=== PATIENT | female | born 1985 | race Caucasian/White ===

== ENCOUNTER 2020-05-08 14:36 | Emergency (ER) | payer SELFPAY ==
--- NOTE | 2020-05-08 14:43 | EDM.PDOC ---
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 She states she had a normal menstrual period in December 2019. Since then, she has had light spotting which is landing on her routine menses although is lasting approximately 1 day (typically has a 4 day menses). In March 2020 she took a test which she says was "faintly positive". Today she started to develop vaginal bleeding and cramping to the left lower quadrant. She is concerned she may be and having a miscarriage. Denies any vaginal discharge or concern for STIs. Patient denies any fever, chills, headache, change in vision, syncope or near syncope. Denies any chest pain, back pain, shortness of breath or cough. Denies any nausea, vomiting, diarrhea, constipation or dysuria. Has not noted any blood in urine or stool. Patient has been eating and drinking appropriately. 4: para 0 Review of systems: As per history of present illness and below otherwise all systems reviewed and negative. Past medical history: As per history of present illness and as reviewed below otherwise noncontributory. Surgical history: As per history of present illness and as reviewed below otherwise noncontributory. Social history: See social history for further information Family history: As per history of present illness and as reviewed below otherwise non contributory. Physical exam: General: Well developed and well nourished. Alert and orientated x 3. Nontoxic in appearance and in no acute distress. Vital signs are stable and have been reviewed by me. Nursing notes were reviewed. HEENT: Atraumatic, normocephalic, pupils equal and reactive bilaterally, negative for conjunctival pallor or scleral icterus, mucous membranes moist, trachea midline. No drooling or trismus noted. No meningeal signs. No hot potato voice noted. Lungs: Clear to auscultation, breath sounds equal bilaterally, chest nontender. Normal work of breathing, no accessory muscles used. Heart: S1S2, regular rate and rhythm without overt murmur Abdomen: Soft, nondistended, nontender. Negative for masses or hepatosplenomegaly. Negative for costovertebral tenderness. Pelvis: Stable nontender. Skin: Intact, warm, dry. No lesions or rashes noted. Hematologic: No petechiae or purpra. Mucosa appropriate color and normal nail bed color and refill. Extremities: Atraumatic, moves all extremities per self without difficulty or deficits, negative for cords or calf pain. Neurovascular unremarkable. Neuro: Awake, alert, oriented. Cranial nerves II through XII unremarkable. Cerebellum unremarkable. Motor and sensory unremarkable throughout. Exam nonfocal. Psychiatric: Mood and affect are appropriate. Normal thought process. Answering questions appropriately. Notes: Patient's test was negative, she declines wanting a pelvic exam done at this time. She has no concerns for STIs. She is agreeable to a pelvic ultrasound for her left lower abdominal pain. Ultrasound shows a small hemorrhagic cyst 1.2 cm on the right ovary. Unremarkable left ovary. No evidence of torsion on either side. No myometrial mass. The endometrium is of normal caliber and appearance I have talked with the patient about today's findings, in addition to providing specific details for plan of care. Reassessment at the time of disposition demonstrates that the patient is in no acute distress. The patient is stable for discharge, counseling was provided and we discussed in great detail signs and symptoms that would prompt them to return to the Emergency Department. Medication, follow up and supportive care measures were reviewed and discussed. Voices understanding and is agreeable to plan of care. Denies any further questions or concerns at this time. Diagnostics: CBC, CMP, UA, HCGU, Pelvic ultrasounds Therapeutics: None Prescription: None Impression: Abdominal pain Ovarian cyst, right Plan: 1. Today your lab work showed no evidence of . You do have a small ovarian cyst on the right, otherwise your ultrasound was within normal limits. 2. You can alternate Tylenol and ibuprofen as needed for pain management. 3. We encourage you to follow up with your primary care provider and/or recommended specialist in the next few days for re-evaluation and further care/management. If your symptoms should worsen, new symptoms develop or any of the signs and symptoms we discussed should arise please return to the emergency room or call 911 (if needed). Definitive disposition and diagnosis as appropriate pending reevaluation and review of above. lower abdomen Pain Score (Numeric/FACES): 5 - Related Data Allergies Allergy/AdvReac Type Severity Reaction Status Date / Time No Known Allergies Allergy Verified 05/08/20 14:45 Home Meds: Home Meds Pnv No.103/Folic/Om3s/Fish Oil [ Gummies] 2 tab PO DAILY 05/08/20 [History] ED ROS GENERAL - Review of Systems Review Of Systems: Comprehensive ROS is negative, except as noted in HPI. ED EXAM - Physical Exam Exam: See Below (See dictation) Course - Vital Signs Last Recorded V/S: Last Vital Signs Temp 97.2 F 05/08/20 14:41 Pulse 96 05/08/20 14:41 Resp 16 05/08/20 14:41 BP 139/73 05/08/20 14:41 Pulse Ox 100 05/08/20 14:41 - Orders/Labs/Meds Orders: Active Orders 24 hr Category Date Time Status CMP [COMPREHENSIVE METABOLIC PN,CMP] [CHEM] Stat Lab 05/08/20 15:18 Received Labs: Laboratory Tests 05/08/20 05/08/20 05/08/20 Range/Units 14:50 14:50 15:18 WBC 8.65 (4.0-11.0) K/uL RBC 4.01 L (4.30-5.90) M/uL Hgb 14.5 (12.0-16.0) g/dL Hct 40.3 (36.0-46.0) % MCV 100.5 H (80.0-98.0) fL MCH 36.2 H (27.0-32.0) pg MCHC 36.0 (31.0-37.0) g/dL RDW Std Deviation 47.1 (28.0-62.0) fl RDW Coeff of [place] 13 (11.0-15.0) % Plt Count 288 (150-400) K/uL MPV 10.00 (7.40-12.00) fL Neut % (Auto) 52.8 (48.0-80.0) % Lymph % (Auto) 37.3 (16.0-40.0) % [place] % (Auto) 5.8 (0.0-15.0) % Eos % (Auto) 3.6 (0.0-7.0) % Baso % (Auto) 0.5 (0.0-1.5) % Neut # (Auto) 4.6 (1.4-5.7) K/uL Lymph # (Auto) 3.2 H (0.6-2.4) K/uL [place] # (Auto) 0.5 (0.0-0.8) K/uL Eos # (Auto) 0.3 (0.0-0.7) K/uL Baso # (Auto) 0.0 (0.0-0.1) K/uL Nucleated RBC % 0.0 /100WBC Nucleated RBCs # 0 K/uL Urine Color YELLOW Urine Appearance CLEAR Urine pH 6.5 (5.0-8.0) Ur Specific [place] 1.020 (1.001-1.035) Urine Protein NEGATIVE (NEGATIVE) mg/dL Urine Glucose (UA) NEGATIVE (NEGATIVE) mg/dL Urine Ketones NEGATIVE (NEGATIVE) mg/dL Urine Occult Blood LARGE H (NEGATIVE) Urine Nitrite NEGATIVE (NEGATIVE) Urine Bilirubin NEGATIVE (NEGATIVE) Urine Urobilinogen 0.2 (<2.0) EU/dL Ur Leukocyte Esterase SMALL H (NEGATIVE) Urine RBC 3-5 (0-2/HPF) Urine WBC 2-3 (0-5/HPF) Ur Epithelial Cells MODERATE (NONE-FEW) Urine Bacteria RARE (NEGATIVE) Urine HCG, Qual NEGATIVE (NEGATIVE) Departure - Departure Time of Disposition: 16:15 Disposition: Home, Self-Care 01 Clinical Impression: Abdominal pain Qualifiers: Abdominal location: left lower quadrant Qualified Code(s): R10.32 - Left lower quadrant pain Ovarian cyst Qualifiers: Laterality: right Qualified Code(s): N83.201 - Unspecified ovarian cyst, right side - Discharge Information Instructions: Abdominal Pain, Adult, [id number] Referrals: PCP,None [Primary Care Provider] - Forms: ED Department Discharge Additional Instructions: The following information is given to patients seen in the emergency department who are being discharged to home. This information is to outline your options for follow-up care. We provide all patients seen in our emergency department with a follow-up referral. The need for follow-up, as well as the timing and circumstances, are variable depending upon the specifics of your emergency department visit. If you don't have a primary care physician on staff, we will provide you with a referral. We always advise you to contact your personal physician following an emergency department visit to inform them of the circumstance of the visit and for follow-up with them and/or the need for any referrals to a consulting specialist. The emergency department will also refer you to a specialist when appropriate. This referral assures that you have the opportunity for follow-up care with a specialist. All of these measure are taken in an effort to provide you with optimal care, which includes your follow-up. Under all circumstances we always encourage you to contact your private physician who remains a resource for coordinating your care. When calling for follow-up care, please make the office aware that this follow-up is from your recent emergency room visit. If for any reason you are refused follow-up, please contact the [facility] Emergency Department at and asked to speak to the emergency department charge nurse. [facility] [address] [place] [id number] [facility] [address] [place] [id number] Thank you for choosing the [facility] emergency department in [place] for your medical needs today. It was a pleasure caring for you. Today you were seen in the emergency department for vaginal bleeding. 1. Today your lab work showed no evidence of . You do have a small ovarian cyst on the right, otherwise your ultrasound was within normal limits. 2. You can alternate Tylenol and ibuprofen as needed for pain management. 3. We encourage you to follow up with your primary care provider and/or recommended specialist in the next few days for re-evaluation and further care/management. If your symptoms should worsen, new symptoms develop or any of the signs and symptoms we discussed should arise please return to the emergency room or call 911 (if needed). Sepsis Event Note (ED) - Focused Exam Vital Signs: Vital Signs Temp Pulse Resp BP Pulse Ox 05/08/20 14:41 97.2 F 96 16 139/73 100 - My Orders Last 24 Hours: My Active Orders 05/08/20 15:18 CMP [COMPREHENSIVE METABOLIC PN,CMP] [CHEM] Stat - Assessment/Plan Last 24 Hours: My Active Orders 05/08/20 15:18 CMP [COMPREHENSIVE METABOLIC PN,CMP] [CHEM] Stat
--- NOTE | 2020-05-08 16:09 | US ---
Indication: Left lower quadrant pain. Bleeding. Technique: The study was performed transvaginally only. Doppler was also performed to assess the ovaries. Comparison: None Findings: Uterus: Uterus is retroflexed. The uterus measures 4.8 by a 3.0 x 3.3 centimeters which is smaller than average. No myometrial mass. The endometrium is of normal caliber and appearance measuring 2 millimeters. Right ovary: Measures 2.1 by 3.1 by 3.8 centimeters. This contains what is likely a small hemorrhagic cyst measuring about 1.2 centimeters. No evidence of torsion Left ovary: Measures 2.5 by 2.3 x 1.6 centimeters containing follicles. No evidence of torsion No free fluid in the cul de sac Impression: Small likely hemorrhagic cyst measuring 1.2 centimeters in the right ovary. Unremarkable left ovary. No evidence of torsion on either side. No myometrial mass. The endometrium is of normal caliber and appearance Dictated by Tomi Guerrero MD @ May 08 2020 4:03PM Signed by Dr. Tomi Guerrero @ May 08 2020 4:07PM
[2020-05-08 16:14] LABS: BLOOD UREA NITROGEN,BUN 19 mg/dL (7.0-18.0); CHLORIDE,CL 102 mmol/L (98-107); GLUCOSE RANDOM 90 mg/dL (74-106); SODIUM,NA 137 mmol/L (136-145)
== END 2020-05-08 16:32 | disposition home or self-care (01) ==
LOC: MW.ED 14:36
DX: N83.201 Unspecified ovarian cyst, right side (principal)
CPT/HCPCS: 36415; 76857; 76857-26; 80053; 81001; 81025; 85025; 99283; 99284-25

== ENCOUNTER 2020-11-08 15:35 | Emergency (ER) | payer MEDICAID, OTHER ==
[2020-11-08] MEDS ORDERED: Sodium Chloride 0.9% 10 ML Syringe FLUSH PRN (15:39)
[2020-11-08] MEDS ORDERED: diphenhydrAMINE 50 MG/ML SDV IVPUSH ONE (15:39)
[2020-11-08] MEDS ORDERED: Sodium Chloride 0.9% 2.5 ML Syringe FLUSH PRN (15:39)
[2020-11-08] MEDS ORDERED: Dexamethasone 10 MG/ML SDV IVPUSH ONE (15:39)
[2020-11-08] MEDS ORDERED: Famotidine 20 MG/2 ML SDV IVPUSH ONE (15:39)
[2020-11-08] MEDS ORDERED: Dexamethasone 10 MG/ML SDV ONE (15:40)
[2020-11-08] MEDS ORDERED: diphenhydrAMINE 50 MG/ML SDV ONE (15:40)
[2020-11-08] MEDS ORDERED: Famotidine 20 MG/2 ML SDV ONE (15:40)
--- NOTE | 2020-11-08 15:41 | EDM.PDOC ---
ED HPI GENERAL MEDICAL PROBLEM - General Chief Complaint: General Stated Complaint: REACTION TO MEDICATION Time Seen by Provider: 11/08/20 15:38 - History of Present Illness INITIAL COMMENTS - FREE TEXT/NARRATIVE: History of present illness: [] The patient took her first bupropion last night. During the night she was itchy in her face and hands. This morning she woke up at 1130. At that time she had some swelling about her face with a T redness in the face and palms. The patient has no respiratory trouble, no voice change, no scratchy throat. The patient's condition has not changed much in the 4 hours since she awoke this morning. The patient has never had such a reaction to medicine before. Review of systems: As per history of present illness and below otherwise all systems reviewed and negative. Past medical history: As per history of present illness and as reviewed below otherwise noncontributory. Surgical history: As per history of present illness and as reviewed below otherwise noncontributory. Social history: No reported history of drug or alcohol abuse. Family history: As per history of present illness and as reviewed below otherwise noncontributory. Physical exam: Constitutional - well developed, well-nourished and in no acute distress HEENT -there is erythema in the face. There is no trismus and no stridor and a normal voice. Normocephalic, no evidence of trauma - external nose and mouth normal - no mass in neck and no JVD - mucosae moist EYES - full EOM, PERRL, no icterus - no evidence of inflammation, injection, or drainage Respiratory - no respiratory distress, equal bilateral expansion, lungs clear to auscultation and no abnormal lung sounds Cardiovascular - Regular Rhythm with S1 and S2 appreciated and no murmur, gallop or rub. GI - abdomen soft without distension or organomegaly - normal bowel sounds - no guard or rebound Musculoskeletal no gross deformity of long bones or joints - no tenderness, swelling or edema Neurologic - Alert and oriented times four - CN II-XII grossly intact - motor sensory and coordination symmetrically normal Psychiatric - appropriate mood and affect with normal thought content Hematologic - No petechiae or purpura - mucosa appropriate color and sclera not pale - normal nail bed color and refill Integument -she has erythema in the palms-otherwise no rash or evidence of trauma - normal turgor Diagnostics: [] Therapeutics: [] Impression: [] Plan: [] Definitive disposition and diagnosis as appropriate pending reevaluation and review of above. 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 ED EXAM, GENERAL - Physical Exam Exam: See Below Free Text/Narrative:: My physical exam is in the HPI Course - Vital Signs Text/Narrative:: 1556 hrs. patient is improved subjectively. Face is still red. 1622 hrs. patient's face is less red. She understands her instructions. Last Recorded V/S: Last Vital Signs Temp 36.6 C 11/08/20 15:37 Pulse 81 11/08/20 16:14 Resp 17 11/08/20 16:14 BP 135/78 11/08/20 16:14 Pulse Ox 98 11/08/20 16:14 - Orders/Labs/Meds Orders: Active Orders 24 hr Category Date Time Status Sodium Chloride 0.9% [Saline Flush] Med 11/08/20 15:39 Active 10 ml FLUSH ASDIRECTED PRN Sodium Chloride 0.9% [Saline Flush] Med 11/08/20 15:39 Active 2.5 ml FLUSH ASDIRECTED PRN Saline Lock Insert [OM.PC] Stat Oth 11/08/20 15:39 Ordered Medication Orders Sodium Chloride (Sodium Chloride 0.9% 10 Ml Syringe) 10 ml FLUSH ASDIRECTED PRN PRN Reason: Keep Vein Open Last Admin: 11/08/20 15:48 Dose: 10 ml Documented by: NIKOLAS Sodium Chloride (Sodium Chloride 0.9% 2.5 Ml Syringe) 2.5 ml FLUSH ASDIRECTED PRN PRN Reason: Keep Vein Open Last Admin: 11/08/20 15:48 Dose: 2.5 ml Documented by: NIKOLAS Has: Medications Generic Name Dose Route Start Last Admin Trade Name Kindra PRN Reason Stop Dose Admin Sodium Chloride 10 ml 11/08/20 15:39 11/08/20 15:48 Sodium Chloride 0.9% 10 Ml Syringe FLUSH 10 ml ASDIRECTED PRN Administration Keep Vein Open Sodium Chloride 2.5 ml 11/08/20 15:39 11/08/20 15:48 Sodium Chloride 0.9% 2.5 Ml Syringe FLUSH 2.5 ml ASDIRECTED PRN Administration Keep Vein Open Discontinued Medications Generic Name Dose Route Start Last Admin Trade Name Kindra PRN Reason Stop Dose Admin Dexamethasone 10 mg 11/08/20 15:39 11/08/20 15:42 Dexamethasone 10 Mg/Ml Sdv IVPUSH 11/08/20 15:40 10 mg ONETIME ONE Administration Dexamethasone Confirm 11/08/20 15:40 11/08/20 15:49 Dexamethasone 10 Mg/Ml Sdv Administered 11/08/20 15:41 Not Given Dose 10 mg .ROUTE .STK-MED ONE Diphenhydramine HCl 50 mg 11/08/20 15:39 11/08/20 15:44 Diphenhydramine 50 Mg/Ml Sdv IVPUSH 11/08/20 15:40 50 mg ONETIME ONE Administration Diphenhydramine HCl Confirm 11/08/20 15:40 11/08/20 15:49 Diphenhydramine 50 Mg/Ml Sdv Administered 11/08/20 15:41 Not Given Dose 50 mg .ROUTE .STK-MED ONE Famotidine 20 mg 11/08/20 15:39 11/08/20 15:47 Famotidine 20 Mg/2 Ml Sdv IVPUSH 11/08/20 15:40 20 mg ONETIME ONE Administration Famotidine Confirm 11/08/20 15:40 11/08/20 15:49 Famotidine 20 Mg/2 Ml Sdv Administered 11/08/20 15:41 Not Given Dose 20 mg .ROUTE .STK-MED ONE Departure - Departure Time of Disposition: 16:23 Disposition: Home, Self-Care 01 Condition: Good Clinical Impression: Allergic reaction - Discharge Information Prescriptions: methylPREDNISolone [Medrol Dose Pack] 4 mg PO DAILY #21 tab Forms: ED Department Discharge Additional Instructions: Benadryl is [id number]-ximduvx. Take it and 25 to 50 mg increments 3 times a day for at least 3 days. Stop the bupropion. Famotidine is noki-hvo-wmbyhos as well and should be taken 20 mg daily for at least 3 days. The Medrol Dosepak is a prescription that was sent to your pharmacy. [facility] [address] [place] [address] [id number] [address] The following information is given to patients seen in the emergency department who are being discharged to home. This information is to outline your options for follow-up care. We provide all patients seen in our emergency department with a follow-up referral. The need for follow-up, as well as the timing and circumstances, are variable depending upon the specifics of your emergency department visit. If you don't have a primary care physician on staff, we will provide you with a referral. We always advise you to contact your personal physician following an emergency department visit to inform them of the circumstance of the visit and for follow-up with them and/or the need for any referrals to a consulting specialist. The emergency department will also refer you to a specialist when appropriate. This referral assures that you have the opportunity for follow-up care with a specialist. All of these measure are taken in an effort to provide you with optimal care, which includes your follow-up. Under all circumstances we always encourage you to contact your private physician who remains a resource for coordinating your care. When calling for follow-up care, please make the office aware that this follow-up is from your recent emergency room visit. If for any reason you are refused follow-up, please contact the [facility] Emergency Department at and asked to speak to the emergency department charge nurse. Sepsis Event Note (ED) - Focused Exam Vital Signs: Vital Signs Temp Pulse Resp BP Pulse Ox 11/08/20 16:14 81 17 135/78 98 11/08/20 15:37 36.6 C 94 18 143/93 H 100 - My Orders Last 24 Hours: My Active Orders 11/08/20 15:39 Sodium Chloride 0.9% [Saline Flush] 10 ml FLUSH ASDIRECTED PRN Sodium Chloride 0.9% [Saline Flush] 2.5 ml FLUSH ASDIRECTED PRN Saline Lock Insert [OM.PC] Stat - Assessment/Plan Last 24 Hours: My Active Orders 11/08/20 15:39 Sodium Chloride 0.9% [Saline Flush] 10 ml FLUSH ASDIRECTED PRN Sodium Chloride 0.9% [Saline Flush] 2.5 ml FLUSH ASDIRECTED PRN Saline Lock Insert [OM.PC] Stat
== END 2020-11-08 16:34 | disposition home or self-care (01) ==
LOC: MW.ED 15:35
DX: L29.9 Pruritus, unspecified (principal); T43.295A Adverse effect of other antidepressants, initial encounter
CPT/HCPCS: 96374; 96375; 99283; J1100; J1200; J3490

== ENCOUNTER 2021-07-05 15:02 | Emergency (ER) | payer BC, MEDICAID ==
[2021-07-05] MEDS ORDERED: Sodium Chloride 0.9% 10 ML Syringe FLUSH PRN (16:37)
[2021-07-05] MEDS ORDERED: Sodium Chloride 0.9% 2.5 ML Syringe FLUSH PRN (16:37)
[2021-07-05] MEDS ORDERED: Ondansetron 4 MG/2 ML SDV IVPUSH ONE (16:38)
[2021-07-05] MEDS ORDERED: Sodium Chloride 0.9% 1,000 ML IV ONE (16:38)
[2021-07-05] MEDS ORDERED: Morphine 2 MG/ML SYRINGE IVPUSH ONE (16:38)
[2021-07-05 17:56] LABS: CORONAVIRUS COVID-19 NAA POSITIVE (NEGATIVE); INFLUENZA A NAA NEGATIVE (NEGATIVE); INFLUENZA B NAA NEGATIVE (NEGATIVE)
[2021-07-05 18:03] LABS: BLOOD UREA NITROGEN,BUN 13 mg/dL (7.0-18.0); CARBON DIOXIDE,CO2 26.5 mmol/L (21.0-32.0); CHLORIDE,CL 99 mmol/L (98-107); GLUCOSE RANDOM 119 mg/dL (74-106); POTASSIUM,K 5.9 mmol/L (3.5-5.1); SODIUM,NA 135 mmol/L (136-145)
[2021-07-05] MEDS ORDERED: Nitrofurantoin Monohydrate/Macrocrystalline 100 MG Cap PO STA (18:16)
== END 2021-07-05 18:27 | disposition home or self-care (01) ==
LOC: MW.ED 15:02
DX: U07.1 COVID-19 (principal); N39.0 Urinary tract infection, site not specified; J45.909 Unspecified asthma, uncomplicated; Z88.8 Allergy status to other drugs, medicaments and biological substances; Z79.899 Other long term (current) drug therapy
CPT/HCPCS: 0240U; 36415; 80053; 81001; 84703; 85025; 96374; 96375; 99284; J2270; J2405; J7030

== ENCOUNTER 2021-07-07 08:37 | Emergency (ER) | payer MEDICAID ==
[2021-07-07] MEDS ORDERED: Sodium Chloride 0.9% 10 ML Syringe FLUSH PRN (09:09)
[2021-07-07] MEDS ORDERED: Sodium Chloride 0.9% 1,000 ML IV ONE (09:09)
[2021-07-07] MEDS ORDERED: Sodium Chloride 0.9% 2.5 ML Syringe FLUSH PRN (09:09)
[2021-07-07] MEDS ORDERED: Ondansetron 4 MG/2 ML SDV IVPUSH ONE ×2 (09:09→12:30)
[2021-07-07] MEDS ORDERED: Ibuprofen 600 MG Tab PO ONE ×2 (09:10→12:30)
[2021-07-07] MEDS ORDERED: Acetaminophen 325 MG Tab PO ONE ×2 (09:10→12:30)
[2021-07-07 09:49] LABS: BLOOD UREA NITROGEN,BUN 9 mg/dL (7.0-18.0); CARBON DIOXIDE,CO2 25.4 mmol/L (21.0-32.0); CHLORIDE,CL 99 mmol/L (98-107); GLUCOSE RANDOM 145 mg/dL (74-106); POTASSIUM,K 3.6 mmol/L (3.5-5.1); SODIUM,NA 135 mmol/L (136-145)
[2021-07-07] MEDS ORDERED: Iopamidol 755 MG/ML 500 ML Multipack Bottle IVPUSH STA (10:45)
== END 2021-07-07 12:51 | disposition home or self-care (01) ==
LOC: MW.ED 08:37
DX: U07.1 COVID-19 (principal); R07.89 Other chest pain; R74.01 Elevation of levels of liver transaminase levels; R74.8 Abnormal levels of other serum enzymes; Z88.8 Allergy status to other drugs, medicaments and biological substances; Z87.891 Personal history of nicotine dependence
CPT/HCPCS: 36415; 71275; 80053; 83690; 85025; 93005; 96374; 99285; A9270; J2405; J7030; Q9967

== ENCOUNTER 2022-02-09 16:09 | Emergency (ER) | payer MEDICAID ==
[2022-02-09] MEDS ORDERED: Sodium Chloride 0.9% 1,000 ML IV ONE ×2 (16:24→18:11)
[2022-02-09 17:24] LABS: CARBON DIOXIDE,CO2 23.4 mmol/L (21.0-32.0); POTASSIUM,K 3.6 mmol/L (3.5-5.1)
== END 2022-02-09 18:55 | disposition home or self-care (01) ==
LOC: MW.ED 16:09
DX: O20.0 Threatened abortion (principal); O23.41 Unspecified infection of urinary tract in pregnancy, first trimester; Z3A.01 Less than 8 weeks gestation of pregnancy; Z88.8 Allergy status to other drugs, medicaments and biological substances; Z79.899 Other long term (current) drug therapy; Z86.16 Personal history of COVID-19
CPT/HCPCS: 36415; 80053; 81001; 84702; 84703; 85025; 87086; 96360; 99284; J7030

== ENCOUNTER 2022-04-30 06:03 | Day surgery (SDC) | payer MEDICAID ==
[2022-04-30] MEDS ORDERED: Lactated Ringers 1,000 ML IV SCH (06:40)
[2022-04-30] MEDS ORDERED: Naloxone 0.4 MG/ML SDV IVPUSH PRN (07:01)
[2022-04-30] MEDS ORDERED: Metoclopramide 10 MG/2 ML SDV IVPUSH PRN (07:01)
[2022-04-30] MEDS ORDERED: HYDROmorphone 1 MG/ML Syringe IVPUSH PRN (07:01)
[2022-04-30] MEDS ORDERED: Ondansetron 4 MG/2 ML SDV IVPUSH PRN (07:01)
[2022-04-30] MEDS ORDERED: Albuterol 0.083% 2.5 MG/3 ML Neb Soln NEB PRN (07:01)
[2022-04-30] MEDS ORDERED: fentaNYL 50 MCG/ML SDV IVPUSH PRN (07:01)
[2022-04-30] MEDS ORDERED: Morphine 2 MG/ML SYRINGE IVPUSH PRN (07:01)
[2022-04-30] MEDS ORDERED: Bupivacaine 0.25% 10 ML SDV ONE (07:32)
[2022-04-30] MEDS ORDERED: Chloroprocaine 10 MG/ML 5 ML Amp ONE (07:37)
[2022-04-30] MEDS ORDERED: Propofol 200 MG/20 ML SDV ONE ×2 (07:39→08:28)
[2022-04-30] MEDS ORDERED: Lidocaine 2% 5 ML SDV ONE (07:39)
[2022-04-30 07:42] LABS: CARBON DIOXIDE,CO2 23.6 mmol/L (21.0-32.0); POTASSIUM,K 3.6 mmol/L (3.5-5.1)
[2022-04-30] MEDS ORDERED: Water For Injection, Sterile 20 ML ONE (08:25)
[2022-04-30] MEDS ORDERED: ceFAZolin 2 GM Vial ONE (08:25)
[2022-04-30] MEDS ORDERED: Ketorolac 30 MG/ML SDV ONE (08:28)
[2022-04-30] MEDS ORDERED: Acetaminophen/HYDROcodone 325-5 MG Tab PO PRN (09:10)
== END 2022-04-30 14:00 | disposition home or self-care (01) ==
LOC: MW.SDS 06:03
PROVIDERS: ATTEND Obstetrics & Gynecology
DX: O34.32 Maternal care for cervical incompetence, second trimester (principal); J45.909 Unspecified asthma, uncomplicated; N76.0 Acute vaginitis; O99.212 Obesity complicating pregnancy, second trimester; Z79.899 Other long term (current) drug therapy; Z3A.18 18 weeks gestation of pregnancy; Z88.8 Allergy status to other drugs, medicaments and biological substances
CPT/HCPCS: 36415; 80053; 85025; 86850; 86900; 86901; J0690; J1885; J2400; J2704; J3490; J7120

== ENCOUNTER 2022-09-14 12:11 | Inpatient (IN) | payer MEDICAID ==
[2022-09-14] MEDS ORDERED: Misoprostol 200 MCG Tab PO PRN (14:16)
[2022-09-14] MEDS ORDERED: Tranexamic Acid 1,000 MG in Sodium Chloride 0.9% 100 ML IV PRN (14:16)
[2022-09-14] MEDS ORDERED: Lidocaine 1% 50 ML MDV INJECT PRN (14:16)
[2022-09-14] MEDS ORDERED: Water For Irrigation,Sterile 1,000 ML Container IRR PRN (14:16)
[2022-09-14] MEDS ORDERED: Terbutaline 1 MG/ML SDV SUBCUT PRN (14:16)
[2022-09-14] MEDS ORDERED: Carboprost Tromethamine 250 MCG/1 ML Amp IM PRN (14:16)
[2022-09-14] MEDS ORDERED: Sodium Chloride 0.9% 10 ML Syringe FLUSH PRN (14:16)
[2022-09-14] MEDS ORDERED: Methylergonovine 0.2 MG/1 ML Amp IM PRN (14:16)
[2022-09-14] MEDS ORDERED: Sodium Chloride 0.9% 2.5 ML Syringe FLUSH PRN (14:16)
[2022-09-14] MEDS ORDERED: Ondansetron 4 MG/2 ML SDV IVPUSH PRN (14:16)
[2022-09-14] MEDS ORDERED: Sodium Chloride 0.9% 20 ML SDV IV PRN (14:16)
[2022-09-14] MEDS ORDERED: Oxytocin/0.9 % Sodium Chloride 30 UNIT/500 ML BAG IV SCH ×2 (14:30)
[2022-09-14] MEDS: Lactated Ringers 1,000 ML IV SCH ×2 (17:25→22:32)
[2022-09-14] MEDS: Butorphanol 1 MG/ML SDV IVPUSH PRN ×2 (20:25→21:31)
[2022-09-14] MEDS ORDERED: Bupivacaine 0.5% 10 ML SDV ONE (22:20)
[2022-09-14] MEDS ORDERED: Ropivacaine/PF 400 MG/200 ML PCA ONE (22:20)
[2022-09-14] MEDS ORDERED: Phenylephrine HCl 0.5 MG/5 ML AMP IVPUSH PRN (22:50)
[2022-09-14] MEDS ORDERED: ePHEDrine 50 MG/ML SDV IVPUSH PRN ×2 (22:50)
[2022-09-14] MEDS ORDERED: Ropivacaine HCl/PF 400 MG in Premix Bag 1 BAG EPIDUR SCH (23:00)
[2022-09-15] MEDS: Lactated Ringers 1,000 ML IV SCH (00:16)
[2022-09-15] MEDS ORDERED: oxyCODONE 5 MG Tab PO PRN (04:17)
[2022-09-15] MEDS ORDERED: Benzocaine/Menthol 20%-0.5% Spray 78 GM Cannister TOP PRN (04:17)
[2022-09-15] MEDS ORDERED: Acetaminophen 500 MG Tab PO PRN (04:17)
[2022-09-15] MEDS ORDERED: Ibuprofen 400 MG Tab PO PRN (04:17)
[2022-09-15] MEDS ORDERED: Bisacodyl 10 MG Supp RECTAL PRN (04:17)
[2022-09-15] MEDS ORDERED: Lanolin 100% Cream 7 GM Tube TOP PRN (04:17)
[2022-09-15] MEDS: Acetaminophen 500 MG Tab PO PRN ×2 (11:05→16:53)
[2022-09-15] MEDS: Ibuprofen 800 MG Tab PO PRN ×2 (11:06→21:47)
[2022-09-15] MEDS: Witch Hazel Medicated Pads 40/Jar TOP PRN (11:06)
[2022-09-16] MEDS: Ibuprofen 800 MG Tab PO PRN ×2 (04:15→21:28)
[2022-09-16] MEDS: Acetaminophen 500 MG Tab PO PRN ×2 (04:16→13:42)
[2022-09-16 06:10] LABS: CARBON DIOXIDE,CO2 23.2 mmol/L (21.0-32.0); POTASSIUM,K 3.7 mmol/L (3.5-5.1)
[2022-09-16] MEDS: Docusate Sodium 100 MG Cap PO PRN (21:30)
[2022-09-17] MEDS: Acetaminophen 500 MG Tab PO PRN ×2 (00:56→13:25)
[2022-09-17] MEDS: Ibuprofen 800 MG Tab PO PRN (08:25)
[2022-09-17] MEDS: Witch Hazel Medicated Pads 40/Jar TOP PRN (08:27)
[2022-09-17] MEDS: Docusate Sodium 100 MG Cap PO PRN (10:13)
== END 2022-09-17 14:54 | disposition home or self-care (01) | DRG 806 ==
LOC: MW.OBCHECK 12:11 → MW.OB 14:16 → OBSVTOIN 09-15 03:38 → MW.OB 09-15 11:43
PROVIDERS: ADMIT Obstetrics & Gynecology; ATTEND Obstetrics & Gynecology
PROC: 10D07Z6 Extraction of Products of Conception, Vacuum, Via Natural or Artificial Opening (ICD-10-PCS; principal; 2022-09-15)
PROC: 0KQM0ZZ Repair Perineum Muscle, Open Approach (ICD-10-PCS; 2022-09-15)
PROC: 3E0R3BZ Introduction of Anesthetic Agent into Spinal Canal, Percutaneous Approach (ICD-10-PCS; 2022-09-15)
PROC: 00HU33Z Insertion of Infusion Device into Spinal Canal, Percutaneous Approach (ICD-10-PCS; 2022-09-15)
DX: O42.92 Full-term premature rupture of membranes, unspecified as to length of time between rupture and onset of labor (principal); Z3A.38 38 weeks gestation of pregnancy; Z37.0 Single live birth; O98.32 Other infections with a predominantly sexual mode of transmission complicating childbirth; O24.425 Gestational diabetes mellitus in childbirth, controlled by oral hypoglycemic drugs; O99.214 Obesity complicating childbirth; O75.81 Maternal exhaustion complicating labor and delivery; O70.1 Second degree perineal laceration during delivery
CPT/HCPCS: 36415; 51702; 59025; 59409; 80048; 82803; 84112; 85014; 85018; 85027; 86592; 86850; 86900; 86901; A9270-GY; J0595; J2405; J2590; J2795; J3490; J7120

== ENCOUNTER 2023-03-05 10:26 | Emergency (ER) | payer MEDICAID ==
[2023-03-05 11:37] LABS: CORONAVIRUS COVID-19 NAA NEGATIVE (NEGATIVE); INFLUENZA A NAA NEGATIVE (NEGATIVE); INFLUENZA B NAA NEGATIVE (NEGATIVE)
== END 2023-03-05 11:58 | disposition home or self-care (01) ==
LOC: MW.ED 10:26
DX: B34.9 Viral infection, unspecified (principal); E66.9 Obesity, unspecified; Z20.822 Contact with and (suspected) exposure to COVID-19; Z68.41 Body mass index [BMI] 40.0-44.9, adult; Z86.16 Personal history of COVID-19; Z88.8 Allergy status to other drugs, medicaments and biological substances
CPT/HCPCS: 0240U; 99284; 99283

== ENCOUNTER 2024-03-08 17:17 | Emergency (ER) | payer SELFPAY ==
[2024-03-08] MEDS: methylPREDNISolone Sodium Succinate 125 MG/2 ML SDV IM ONE (19:01)
[2024-03-08] MEDS: Ketorolac 60 MG/2 ML SDV IM ONE (19:01)
== END 2024-03-08 20:14 | disposition home or self-care (01) ==
LOC: MW.ED 17:17
DX: M54.32 Sciatica, left side (principal); E66.9 Obesity, unspecified; Z75.8 Other problems related to medical facilities and other health care; Z88.8 Allergy status to other drugs, medicaments and biological substances; Z68.42 Body mass index [BMI] 45.0-49.9, adult
CPT/HCPCS: 93971; 96372; 99283; J1885; J2919

== ENCOUNTER 2025-01-07 12:49 | Emergency (ER) | payer OTHER ==
[2025-01-07] MEDS: Ketorolac 30 MG/ML SDV IM ONE (13:52)
== END 2025-01-07 15:58 | disposition home or self-care (01) ==
LOC: MW.ED 12:49
DX: S82.001A Unspecified fracture of right patella, initial encounter for closed fracture (principal); Z88.8 Allergy status to other drugs, medicaments and biological substances; Z79.899 Other long term (current) drug therapy; V89.2XXA Person injured in unspecified motor-vehicle accident, traffic, initial encounter
CPT/HCPCS: 73562; 96372; 99284; J1885; 99282